=== PATIENT | female | born 1980 | race Caucasian/White ===

== ENCOUNTER 2017-07-11 01:57 | Observation (INO) ==
[2017-07-11 02:29] LABS: Microscopic, Urine URINE MICROSCOPIC (MICROSCOPIC)
[2017-07-11 02:31] LABS: Appearance,Urine CLEAR (Clear); Bilirubin,Urine Negative (Negative); Blood, Urine Negative (Negative); Color,Urine YELLOW (Yellow); Glucose,Urine (UA) Negative (Negative); Ketones,Urine Negative (Negative); Leukocyte Esterase,Urine Negative (Negative); Protein,Urine Negative (Negative); Specific Gravity, Urine 1.025 (1.005-1.030); Urobilinogen,Urine 0.2 EU/dl (0.2)
[2017-07-11 02:32] LABS: Basophils % 0.4 % (0.1-2.0); Eosinophils # 0.3 K/mm3 (0.0-0.4); Eosinophils % 4.5 % (0.1-12.0); Hematocrit 43.2 % (37.0-47.0); Hemoglobin 14.8 g/dL (12.2-16.2); Lymphocytes # 1.7 K/mm3 (0.7-4.5); Lymphocytes % 22.4 K/mm3 (10-50); Mean Corpuscular HGB Conc 34.2 g/dL (31.8-35.4); Mean Corpuscular Hemoglobin 31.3 pg (27.0-31.2); Mean Corpuscular Volume 91.5 fl (81-99); Mean Platelet Volume 7.4 fl (7.4-10.4); Monocytes # 0.4 K/mm3 (0.1-1.0); Monocytes % 4.9 % (1.7-9.3); Neutrophils # 5.1 K/mm3 (1.8-7.8); Neutrophils % 67.8 % (37.0-80.0); Platelet Count 240 K/mm3 (142-424); Red Blood Count 4.72 M/mm3 (4.20-5.40); White Blood Count 7.6 K/mm3 (4.8-10.8)
[2017-07-11 02:33] LABS: Amorphous Sediment,Urine Trace /lpf
[2017-07-11 03:00] LABS: Alanine Aminotransferase 45 U/L (12-78); Albumin Level 3.7 gm/dL (3.4-5.0); Albumin/Globulin Ratio 1.1 (1.1-1.8); Alkaline Phosphatase 90 U/L (46-116); Amylase 49 U/L (25-125); Aspartate Amino Transferase 21 U/L (15-37); Bilirubin,Total 0.4 mg/dL (0.2-1.0); Blood Urea Nitrogen 10 mg/dL (7-18); C-Reactive Protein 1.2 mg/L (0.0-0.9); Calcium 9.4 mg/dL (8.5-10.1); Carbon Dioxide 29 mmol/L (21.0-32.0); Chloride 102 mmol/L (98-107); Creatine Kinase 37 U/L (26-192); Globulin 3.5 gm/dl (1.3-3.2); Glucose 105 mg/dL (74-106); Lipase 150 u/L (73-393); Sodium 140 mmol/L (136-145); Total Protein,Serum 7.2 gm/dL (6.4-8.2)
[2017-07-11 03:15] LABS: Erythrocyte Sedimentation Rate 21 mm/hr (0-20)
--- NOTE | 2017-07-11 04:39 | Emergency Department Note ---
ED Disposition Clinical Impression: Cholecystitis Disposition: Admitted as Observation Condition on Discharge: Good - Critical Care Critical Care Time: No Attestation: On 07/11/17, the high probability of a clinically significant, sudden or life threatening deterioration of the following system(s) required my full and direct attention, intervention and personal management. The time I documented below is in addition to time spent performing reported procedures but includes the following listed in this critical care notation. Medical Decision Making - Medical Records Medical records reviewed: Yes: I reviewed the patient's medical records. - Kamran Inquiry Pt receiving controlled substance: No Vital Signs: 07/11/17 01:58 07/11/17 01:59 07/11/17 04:18 Temperature 98.2 F 98.2 F Temperature Source Oral Oral Pulse Rate [Right Radial] 89 89 63 Respiratory Rate 16 16 17 Blood Pressure [Right Arm] 133/84 133/84 144/98 Blood Pressure Mean [Right Arm] 100 100 113 Blood Pressure Source [Right Arm] Automatic Cuff Automatic Cuff Automatic Cuff Blood Pressure Position [Right Arm] Sitting Sitting Sitting 02 Sat by Pulse Oximetry 98 98 100 Oxygen Delivery Method Room Air Room Air Room Air - Lab Data Lab results reviewed: Yes: I reviewed the patient's lab results. Lab Results 07/11/17 02:12: Urine Color Yellow, Urine Appearance Clear, Urine pH 6.0, Ur Specific [place] 1.025, Urine Protein Negative, Urine Glucose (UA) Negative, Urine Ketones Negative, Urine Blood Negative, Urine Nitrate Negative, Urine Bilirubin Negative, Urine Urobilinogen 0.2, Ur Leukocyte Esterase Negative, Amorphous Sediment Trace 07/11/17 02:12: WBC 7.6, RBC 4.72, Hgb 14.8, Hct 43.2, MCV 91.5, MCH 31.3 H, MCHC 34.2, RDW 12.0, Plt Count 240, MPV 7.4, Neut % (Auto) 67.8, Lymph % (Auto) 22.4, [place] % (Auto) 4.9, Eos % (Auto) 4.5, Baso % (Auto) 0.4, Neut # (Auto) 5.1 , Lymph # (Auto) 1.7, [place] # (Auto) 0.4, Eos # (Auto) 0.3, Baso # (Auto) 0.0, ESR 21 H 07/11/17 02:12: Urine HCG, Qual Negative 07/11/17 02:12: Sodium 140, Potassium 4.0, Chloride 102, Carbon Dioxide 29, Anion Gap 13.0, BUN 10, Creatinine 0.77, Estimated Creat Clear 141, Estimated GFR 86, Est GFR ( Amer) 104, Glucose 105, Calcium 9.4, Total Bilirubin 0.4, AST 21, ALT 45, Alkaline Phosphatase 90, Total Creatine Kinase 37, CK-MB ( CK-2) < 0.5, CK-MB (CK-2) Rel Index 1.4, Troponin I < 0.02, C-Reactive Protein 1.2 H, Total Protein 7.2, Albumin 3.7, Globulin 3.5 H, Albumin/Globulin Ratio 1.1, Amylase 49, Lipase 150 Result diagrams: 07/11/17 02:12 07/11/17 02:12 Orders (Tests/Meds): ED MEDICATIONS Generic Name Dose Route Start Last Admin Trade Name Domenicq PRN Reason Stop Dose Admin Butorphanol Tartrate 1 mg 07/11/17 04:54 Stadol 1mg/1ml Vial IV 07/11/17 04:55 ONCE ONE Promethazine HCl 12.5 mg 07/11/17 04:54 Phenergan 25mg/Ml 1ml Vial IV 07/11/17 04:55 ONCE ONE Sodium Chloride 25 ml 07/11/17 04:54 Sod Chlor 0.9% 25ml Bag IV 07/11/17 04:55 ONCE ONE Discontinued Medications Generic Name Dose Route Start Last Admin Trade Name Domenicq PRN Reason Stop Dose Admin Iopamidol 75 ml 07/11/17 03:28 07/11/17 03:29 [id number]; 75ml Vial IV 07/11/17 03:29 75 ml ONCE ONE Administration Ketorolac Tromethamine 30 mg 07/11/17 02:23 07/11/17 02:29 Toradol 30mg/Ml Vial IV 07/11/17 02:24 30 mg ONCE ONE Administration Morphine Sulfate 4 mg 07/11/17 03:49 07/11/17 03:51 Morphine 2mg/2ml Syringe IV 07/11/17 03:50 4 mg ONCE ONE Administration Ondansetron HCl 4 mg 07/11/17 02:23 07/11/17 02:29 Zofran 4mg/2ml Vial IV 07/11/17 02:24 4 mg ONCE ONE Administration Ondansetron HCl 4 mg 07/11/17 03:49 07/11/17 03:51 Zofran 4mg/2ml Vial IV 07/11/17 03:50 4 mg ONCE ONE Administration Sodium Chloride 10 ml 07/11/17 03:28 07/11/17 03:29 Rad-Saline Flush 10ml Syringe IV 07/11/17 03:29 10 ml ONCE ONE Administration ORDERS Category Date Time Status CT abdomen pelvis w con Stat Cat Scan 07/11/17 02:12 Taken XR thoracic spine 3V Stat Exams 07/11/17 02:18 Taken - Radiology Data #1 Image(s): T-Spine Image Reviewed: Yes I reviewed the patient's radiology image Preliminary Findings: No Fracture Seen - CT Data CT Scan: Abdomen, Pelvis Time Received: 04:[address] Reviewed: Yes: I have viewed the radiologist's interpretation Preliminary Findings: Abnormal - ECG Data Tracing #1 I reviewed this ECG and interpreted as documented below: Normal Sinus Rhythm: Yes Ischemic changes: non-specific ST-T wave changes - Physician Consults Physician Consulted: andres Reason -: Admission Nausea/Vomiting/Diarrhea HPI - General Chief complaint: Back Pain/Injury Stated complaint: back pain Time Seen by Provider: 07/11/17 02:05 Mode of Arrival: Ambulatory Source of Information: Patient, Spouse Limitations: No Limitations Description of Symptoms (Recalled from ER Triage Doc. by RN): Pt. reports mid thoracic back pain that started yesterday and continues to get worse. Pain woke pt. from sleep and is now radiating to her chest. - History of Present Illness HPI Narrative: post thoracic pain with rad to epigastric area with nausea - worse tonight - no fever complaint: nausea, vomiting, abdominal pain Onset (ago): hour(s) Associated Abdominal Pain: Yes Location of pain: epigastric Radiation: other (spine-t) Severity: severe Quality: sharp Consistency: intermittent Associated symptoms: nausea/vomiting - Related Data Home Medications Medication Instructions Recorded Confirmed No Known Home Medications 07/11/17 07/11/17 Allergies Allergy/AdvReac Type Severity Reaction Status Date / Time No Known Allergies Allergy Verified 07/11/17 02:11 [facility] History I have reviewed the patient's past medical history: Yes - Social History Alcohol Intake: never - Psychiatric History Expresses thoughts of harming self/others: None Suicide Plan Description: No Plan ROS Obtained: Yes All systems reviewed & no additional complaints - Constitutional Constitutional: Denies fever(s) - Eyes Eyes: Denies change in vision - ENT Ears, Nose, Mouth, and Throat: Denies sore throat - Cardiovascular Cardiovascular: Denies chest pain - Respiratory Respiratory: No cough - Gastrointestinal Gastrointestingal: Reports: as per HPI, abdominal pain, nausea, vomiting. Denies: diarrhea, bright red blood in stools, black, tarry stools - Genitourinary Female Genitourinary: Denies hematuria - Musculoskeletal Musculoskeletal: Denies joint pain, Denies joint swelling - Integumentary/Breasts Skin/Breast: Denies rash - Neurologic Neurologic: Denies seizure-like activity Physical Exam - General General appearance: alert, in no apparent distress - Head Head exam: normocephalic - Eye Eye exam: Present: PERRL, EOMI. Absent: scleral icterus - ENT ENT exam: Present: mucous membranes moist - Neck Neck exam: Present: trachea midline - Respiratory Respiratory exam: Absent: respiratory distress - Cardiovascular Cardiovascular exam: Present: regular rate - Abdominal Exam Abdominal exam: Present: soft, tenderness Abdominal tenderness: Present: epigastrium - Extremities Exam Extremities exam: Present: full ROM - Back Exam Back exam: Present: vertebral tenderness. Absent: CVA tenderness (R), CVA tenderness (L) - Neurological Exam Neurological exam: Present: alert, oriented X3, CN II-XII intact - Psychiatric Psychiatric exam: Present: normal affect - Skin Skin exam: Absent: rash
[2017-07-11 06:53] LABS: Basophils % 0.3 % (0.1-2.0); Eosinophils # 0.3 K/mm3 (0.0-0.4); Eosinophils % 4.3 % (0.1-12.0); Hematocrit 44.6 % (37.0-47.0); Lymphocytes # 1.3 K/mm3 (0.7-4.5); Lymphocytes % 16.5 K/mm3 (10-50); Mean Corpuscular HGB Conc 33.6 g/dL (31.8-35.4); Mean Corpuscular Hemoglobin 31.4 pg (27.0-31.2); Mean Corpuscular Volume 93.7 fl (81-99); Mean Platelet Volume 7.2 fl (7.4-10.4); Monocytes # 0.3 K/mm3 (0.1-1.0); Neutrophils # 5.9 K/mm3 (1.8-7.8); Platelet Count 197 K/mm3 (142-424); Red Blood Count 4.76 M/mm3 (4.20-5.40); White Blood Count 7.9 K/mm3 (4.8-10.8)
[2017-07-11 07:14] LABS: Chol/HDL Ratio 2.7 (1-3.5)
--- NOTE | 2017-07-11 07:49 | Pharmacy Consult Notes ---
[facility] Pharmacy VTE Monitoring - Patient Demographics Admission date: 07/11/17 Report Date: 07/11/17 Time: 07:48 Allergies/Adverse Reactions: Patient Allergies No Known Allergies Allergy (Verified 07/11/17 02:11) Height: 1.68 m Weight: 89.7 kg Patient Problems: Current Active Problems Cholecystitis (Acute) - VTE Risk Labs: VTE Related Lab Results Hgb 15.0 g/dL (12.2-16.2) 07/11/17 06:25 Hct 44.6 % (37.0-47.0) 07/11/17 06:25 Plt Count 197 K/mm3 (142-424) 07/11/17 06:25 BUN 10 mg/dL (7-18) 07/11/17 02:12 Creatinine 0.77 mg/dL (0.55-1.02) 07/11/17 02:12 Estimated Creat Clear 141 mL/min (0-300) 07/11/17 02:12 Was VTE Risk Assessment Performed: Yes VTE Score: 2 VTE Risk Level: Very Low Risk Clinical Trial Participant: No - Prophylaxis VTE Prophylaxis Ordered?: Yes Types of VTE Prophylaxis: TEDS Knee High
--- NOTE | 2017-07-11 09:58 | History & Physical Report ---
HPI HPI: This is a 36-year-old female who presented to emergency department overnight with increasing pain in the epigastric region and mid posterior back. She also has noticed some pain in the right upper quadrant in the last "day or so". She describes the pain as "pressure". No jaundice. No fevers. Symptoms were not definitively associated with food intake. Evaluation emergency department revealed no evidence of cardiac issues. A CT scan showed changes consistent with biliary disease as her gallbladder was slightly distended. Mild prominence of biliary radicles noted. She did have sludge versus stones in the neck of the gallbladder. [facility] History Medical History: Denies:: Arrhythmia, Cancer Other Medical History: Denies: Arthritis - *Social History Educational Level: Completed College Smoking Status: Never smoker Alcohol Intake: never Occupational Status: employed Housing: house Household Members: spouse, children - Psychiatric History Expresses thoughts of harming self/others: None Suicide Plan Description: No Plan *Family Hx:: Asthma, Cancer, Coronary Artery Disease, Hyperlipidemia, Hypertension Review of Systems - Constitutional Denies anorexia, Denies chills - Eyes Denies change in vision - ENT Denies bleeding gums, Denies change in voice - *Cardiovascular Denies chest pain with activity, Denies generalized swelling, Denies irregular heart rhythm - *Respiratory Denies cough - *Gastrointestinal Reports abdominal pain, Denies bloating, Denies change in bowel habits, Denies vomiting - *Genitourinary Denies abnormal periods - *Musculoskeletal Denies abnormal walking - *Neurologic Denies seizure-like activity - Hematologic/Lymphatic Denies easy bleeding Meds Home Medications Medication Instructions Recorded Confirmed Type No Known Home Medications 07/11/17 07/11/17 History Allergies Allergy/AdvReac Type Severity Reaction Status Date / Time No Known Allergies Allergy Verified 07/11/17 02:11 Exam Vital signs and Labs for Last 24 Hours: Temp Pulse Resp BP Pulse Ox 98.0 F 60 18 100/65 100 07/11/17 07:32 07/11/17 07:32 07/11/17 07:32 07/11/17 07:32 07/11/17 07:32 Laboratory Results - last 24 hr 07/11/17 02:12: Urine Color Yellow, Urine Appearance Clear, Urine pH 6.0, Ur Specific [place] 1.025, Urine Protein Negative, Urine Glucose (UA) Negative, Urine Ketones Negative, Urine Blood Negative, Urine Nitrate Negative, Urine Bilirubin Negative, Urine Urobilinogen 0.2, Ur Leukocyte Esterase Negative, Amorphous Sediment Trace 07/11/17 02:12: WBC 7.6, RBC 4.72, Hgb 14.8, Hct 43.2, MCV 91.5, MCH 31.3 H, MCHC 34.2, RDW 12.0, Plt Count 240, MPV 7.4, Neut % (Auto) 67.8, Lymph % (Auto) 22.4, [place] % (Auto) 4.9, Eos % (Auto) 4.5, Baso % (Auto) 0.4, Neut # (Auto) 5.1 , Lymph # (Auto) 1.7, [place] # (Auto) 0.4, Eos # (Auto) 0.3, Baso # (Auto) 0.0, ESR 21 H 07/11/17 02:12: Urine HCG, Qual Negative 07/11/17 02:12: Sodium 140, Potassium 4.0, Chloride 102, Carbon Dioxide 29, Anion Gap 13.0, BUN 10, Creatinine 0.77, Estimated Creat Clear 141, Estimated GFR 86, Est GFR ( Amer) 104, Glucose 105, Calcium 9.4, Total Bilirubin 0.4, AST 21, ALT 45, Alkaline Phosphatase 90, Total Creatine Kinase 37, CK-MB ( CK-2) < 0.5, CK-MB (CK-2) Rel Index 1.4, Troponin I < 0.02, C-Reactive Protein 1.2 H, Total Protein 7.2, Albumin 3.7, Globulin 3.5 H, Albumin/Globulin Ratio 1.1, Amylase 49, Lipase 150 07/11/17 06:25: WBC 7.9, RBC 4.76, Hgb 15.0, Hct 44.6, MCV 93.7, MCH 31.4 H, MCHC 33.6, RDW 12.0, Plt Count 197, MPV 7.2 L, Neut % (Auto) 75.0, Lymph % (Auto ) 16.5, [place] % (Auto) 4.0, Eos % (Auto) 4.3, Baso % (Auto) 0.3, Neut # (Auto) 5.9, Lymph # (Auto) 1.3, [place] # (Auto) 0.3, Eos # (Auto) 0.3, Baso # (Auto) 0.0 07/11/17 06:25: Triglycerides 49, Cholesterol 142, LDL Cholesterol 80, VLDL Cholesterol 10, HDL Cholesterol 52, Cholesterol/HDL Ratio 2.7 I & O for Last 24 hours: Intake & Output 07/08/17 07/09/17 07/10/17 07/11/17 11:59 11:59 11:59 11:59 Intake Total 0 / 0 Balance 0 / 0 Weight 197 lb 12.074 oz - Constitutional no acute distress - *Routine Respiratory Exam Absent: respiratory distress - *Routine Cardiovascular Exam Present: RRR - *Routine Abdominal Exam Present: soft, tenderness (Epigastric in RUQ) - *Routine Extremities Exam Present: full ROM. Absent: cyanosis, clubbing - *Routine Neurological Exam Present: alert, oriented X3 - Routine Psychiatric Exam Present: normal affect Results - Results Lab Results Last 24 Hours:: Laboratory Results - last 24 hr 07/11/17 02:12: Urine Color Yellow, Urine Appearance Clear, Urine pH 6.0, Ur Specific [place] 1.025, Urine Protein Negative, Urine Glucose (UA) Negative, Urine Ketones Negative, Urine Blood Negative, Urine Nitrate Negative, Urine Bilirubin Negative, Urine Urobilinogen 0.2, Ur Leukocyte Esterase Negative, Amorphous Sediment Trace 07/11/17 02:12: WBC 7.6, RBC 4.72, Hgb 14.8, Hct 43.2, MCV 91.5, MCH 31.3 H, MCHC 34.2, RDW 12.0, Plt Count 240, MPV 7.4, Neut % (Auto) 67.8, Lymph % (Auto) 22.4, [place] % (Auto) 4.9, Eos % (Auto) 4.5, Baso % (Auto) 0.4, Neut # (Auto) 5.1 , Lymph # (Auto) 1.7, [place] # (Auto) 0.4, Eos # (Auto) 0.3, Baso # (Auto) 0.0, ESR 21 H 07/11/17 02:12: Urine HCG, Qual Negative 07/11/17 02:12: Sodium 140, Potassium 4.0, Chloride 102, Carbon Dioxide 29, Anion Gap 13.0, BUN 10, Creatinine 0.77, Estimated Creat Clear 141, Estimated GFR 86, Est GFR ( Amer) 104, Glucose 105, Calcium 9.4, Total Bilirubin 0.4, AST 21, ALT 45, Alkaline Phosphatase 90, Total Creatine Kinase 37, CK-MB ( CK-2) < 0.5, CK-MB (CK-2) Rel Index 1.4, Troponin I < 0.02, C-Reactive Protein 1.2 H, Total Protein 7.2, Albumin 3.7, Globulin 3.5 H, Albumin/Globulin Ratio 1.1, Amylase 49, Lipase 150 07/11/17 06:25: WBC 7.9, RBC 4.76, Hgb 15.0, Hct 44.6, MCV 93.7, MCH 31.4 H, MCHC 33.6, RDW 12.0, Plt Count 197, MPV 7.2 L, Neut % (Auto) 75.0, Lymph % (Auto ) 16.5, [place] % (Auto) 4.0, Eos % (Auto) 4.3, Baso % (Auto) 0.3, Neut # (Auto) 5.9, Lymph # (Auto) 1.3, [place] # (Auto) 0.3, Eos # (Auto) 0.3, Baso # (Auto) 0.0 07/11/17 06:25: Triglycerides 49, Cholesterol 142, LDL Cholesterol 80, VLDL Cholesterol 10, HDL Cholesterol 52, Cholesterol/HDL Ratio 2.7 CT scan - abdomen: report reviewed Assessment and Plan (1) Liver cyst Problem details: small (likely cyst) in left lobe Current visit: Yes Status : Acute Category: Medical Code(s): K76.89 - Other specified diseases of liver US in 2-4 months (2) Splenomegaly Problem details: mild (likely incidental) finding on CT Current visit: Yes Status: Acute Category: Medical Code(s): R16.1 - Splenomegaly, not elsewhere classified (3) Cholecystitis Current visit: Yes Status: Acute Category: Medical Code(s): K81.9 - Cholecystitis, unspecified Pain control (maintain observation status today) Laparoscopic cholecystectomy-I have discussed the risks and benefits and she agrees to proceed. She is scheduled for surgery tomorrow morning.
--- NOTE | 2017-07-12 07:00 | Progress Note ---
[facility] Anesthesia Checklist - Patient Identification Patient Identification: Arm Band, Verbal (Name & ) - Structural Data Admitted From: Home Planned Operative Procedure/s: lap choly Consent for Planned Operative Procedure(s) Verified: Yes Verified Documents: Surgical Consent, History and Physical - NPO Status Verified Time NPO: 00:00 - Chart Verification Results Verified: CBC - Additional verifications Patient : No Anesthesia Reactions: No Hx Blood Transfusions: No Blood Transfusion Reaction: No Cephalosporin Allergy: No Previous Colonoscopy: No - Cardiovascular Assessment Heart Sounds: S1 & S2 Pulse Strength: Baseline Pulse Rhythm: Regular - Airway Assessment C-Spine Mobility Assessed: Yes TMJ Mobility Assessed: Yes Dentition: Good Dentition - Neurological Assessment Level of Consciousness: Awake, Alert, Appropriate Hx Seizures: No Numbness or tingling in extremities: No - Anesthesia Plan Anesthesia Risk discussed: Yes Anesthesia Plan: Verified ASA Class: I Anesthesia Type: General [facility] Anesthesia HX I have reviewed the patient's past medical history: Yes Medical History: Denies:: Arrhythmia, Cancer Other Medical History: Denies: Arthritis Other Surgeries: Yes: No Previous Surgery Amputation: No Fractures: No *Family Hx:: Asthma, Cancer, Coronary Artery Disease, Hyperlipidemia, Hypertension
--- NOTE | 2017-07-12 07:17 | Progress Note ---
Subjective Patient reports: other (Some increased pain (worse after meals) yesterday) Exam Vital signs and Labs for Last 24 Hours: Temp Pulse Resp BP Pulse Ox 98.6 F 86 16 116/68 95 07/12/17 04:00 07/12/17 04:00 07/12/17 04:00 07/12/17 04:00 07/12/17 04:00 Laboratory Results - last 24 hr 07/11/17 06:25: Triglycerides 49, Cholesterol 142, LDL Cholesterol 80, VLDL Cholesterol 10, HDL Cholesterol 52, Cholesterol/HDL Ratio 2.7 I & O for Last 24 hours: Intake & Output 07/09/17 07/10/17 07/11/17 07/12/17 11:59 11:59 11:59 11:59 Intake Total 0 / 0 2240 / 2240 Balance 0 / 0 2240 / 2240 Weight 197 lb 12.074 oz - Constitutional no acute distress - *Routine Respiratory Exam Present: respiratory distress - *Routine Abdominal Exam Present: soft Progress Note: A&P (1) Liver cyst Problem details: small (likely cyst) in left lobe Status: Acute Current Visit: Yes (2) Splenomegaly Problem details: mild (likely incidental) finding on CT Status: Acute Current Visit: Yes (3) Cholecystitis Status: Acute Assessment and plan: Laparoscopic cholecystectomy this morning Current Visit: Yes
--- NOTE | 2017-07-12 08:54 | Operative Note ---
Date of procedure: 07/12/17 Pre-op Diagnosis:: Biliary colic Cholecystitis Post-op Diagnosis:: Acute calculus cholecystitis Gallbladder hydrops Procedure performed:: Laparoscopic cholecystectomy Surgeon:: Baron Warren MD Tool Grinder Set Up Operator Gear(s):: Silvia Church PIANO CASE MAKER:: Chucky Mathis Anesthesia: GETPurnima Estimated blood loss (mL): 15 Operative findings:: Hydropic gallbladder with significant distention and thickening of wall Probable stones within gallbladder lumen Lex-Ramirez drains (2) placed in gallbladder fossa Operative note:: After informed consent was obtained, the patient was taken to the operating room and placed in the supine position. General anesthesia was induced and the abdomen was prepped and draped in a sterile fashion. After infiltration with local anesthetic an infraumbilical incision was made. A Veress needle was placed in position. The abdomen was insufflated. A 5 mm optical trocar was placed in position. Under direct visualization, a 12 mm trocar was placed in the subxiphoid position and 2 additional 5 mm trocars were placed in the right upper quadrant. The gallbladder was elevated up and over the liver margin. The gallbladder is very distended with thickening of the wall. Changes consistent with obvious hydrops were noted. A small opening was made in the dome of the gallbladder. Clear fluid was evacuated. The tissue around the cystic duct was carefully dissected. Four clips were placed proximally and the duct was transected with harmonic estefania. Two clips were placed on the cystic artery and it was then transected at the margin of the gallbladder utilizing harmonic estefania. Harmonic estefania were then utilized to dissect the gallbladder away from the liver margin. The gallbladder was placed in a retrieval bag and removed through the subxiphoid trocar site. The right upper quadrant was thoroughly irrigated. Secondary to the significant inflammatory response, the decision was made to Place Lex-Ramirez drains. A 10 [place] flat Lex- Ramirez drain was placed in the gallbladder fossa and exited through the lateral right upper quadrant trocar site. A second 10 [place] flat Lex-Ramirez drain was placed just outside the gallbladder fossa and exited through the additional right upper quadrant trocar site. The drains were secured with 4-0 nylon. Evaluation of the right upper quadrant revealed no active bleeding or bile leak. Fascia at the subxiphoid trocar site was reapproximated utilizing 0 Ethibond. The remaining trocars were removed. All wounds were irrigated and skin was closed with 4-0 Monocryl in a subcuticular fashion. Steri-Strips were applied. The patient's anesthetic agents were reversed and extubation was completed prior to transfer to recovery in stable condition. Condition: stable Disposition: PACU Specimens:: Gallbladder and contents Complications:: No immediate
--- NOTE | 2017-07-12 09:09 | Progress Note ---
[facility] Anesthesia Record Part I Intake, IV Amount: 1,000 Estimated blood loss (mL): 10 Urine output (mL): 0 Blood Products used (#): none Blood Pressure: 141/91 SaO2: 96 Pulse Rate: 68 Respiratory Rate: 18 Temperature: 97.2 F Patient is:: Drowsy, Stable Stable to PACU at:: 09:02
--- NOTE | 2017-07-12 09:09 | Progress Note ---
[facility] Anesthesia Record Part II Discharge Time: 09:32 Destination: Medical Surgical Department PACU nurse assessment reviewed?: Yes Patient Condition:: Good Anesthesia Complications:: None
--- NOTE | 2017-07-12 13:12 | Discharge Summary ---
General - General Admission date:: 07/11/17 Discharge date: 07/12/17 HPI HPI: This is a 36-year-old female who presented to emergency department overnight with increasing pain in the epigastric region and mid posterior back. She also has noticed some pain in the right upper quadrant in the last "day or so". She describes the pain as "pressure". No jaundice. No fevers. Symptoms were not definitively associated with food intake. Evaluation emergency department revealed no evidence of cardiac issues. A CT scan showed changes consistent with biliary disease as her gallbladder was slightly distended. Mild prominence of biliary radicles noted. She did have sludge versus stones in the neck of the gallbladder. Hospital Course Hospital Course: The patient underwent laparoscopic cholecystectomy on the morning of 07/12/17. She progressed well post-operatively and was deemed appropriate for discharge home on the afternoon of POD 0. Objective Vital signs: Temp Pulse Resp BP Pulse Ox 97.9 F 60 18 121/80 98 07/12/17 12:04 07/12/17 12:04 07/12/17 12:04 07/12/17 12:04 07/12/17 12:04 no acute distress - *Routine Respiratory Exam Absent: respiratory distress - *Routine Cardiovascular Exam Present: RRR - *Routine Abdominal Exam Present: soft, tenderness Comments: epigastric and RUQ - *Routine Neurological Exam Present: alert, oriented X3 - Routine Psychiatric Exam Present: normal affect DS: Diagnosis - Discharge Diagnosis (1) Liver cyst Status: Acute Problem details: small (likely cyst) in left lobe (2) Splenomegaly Status: Acute Problem details: mild (likely incidental) finding on CT (3) Cholecystitis Status: Acute (4) Acute calculous cholecystitis Status: Acute (5) Gallbladder hydrops Status: Acute Discharge Plan - Patient Discharge Instructions ACTIVITY: No heavy lifting DIET: advance to your usual diet Patient Instructions: [place] Diet - Follow up Plan Follow up with: Baron Warren MD [Staff Physician] - 07/14/17 Disposition: Home, Self-Residential Medications: Home Medications Medication Instructions Recorded Confirmed Type No Known Home Medications 07/11/17 07/11/17 History Prescriptions/Medication Reconciliation: No Action No Known Home Medications
[2017-07-12 13:51] VITALS: BP 118/70
== END 2017-07-12 13:53 | disposition home or self-care (01) ==
LOC: ER 01:57 → 2ND 04:56 → INTOOBSV 05:30 → 2ND 05:33
PROVIDERS: ADMIT Surgery; ATTEND Surgery

== ENCOUNTER 2018-08-18 08:00 | Outpatient (RCR) | payer OTHER, SELFPAY | END 2018-08-18 08:05 | disposition home or self-care (01) | LOC: PT 08:00 | PROVIDERS: Visit Provider Nurse Practitioner Family | DX: M54.5 Low back pain (principal) | CPT/HCPCS: 97010; 97014; 97035; 97110; 97140; 97163; G0283 ==

== ENCOUNTER → 2019-06-15 14:39 | Outpatient (CLI) | payer OTHER, SELFPAY | PROVIDERS: PCP Family Medicine; Visit Provider Specialist | DX: G47.33 Obstructive sleep apnea (adult) (pediatric) (principal); G47.30 Sleep apnea, unspecified; R06.83 Snoring | CPT/HCPCS: 95806 ==

== ENCOUNTER → 2019-11-10 13:52 | Outpatient (CLI) | payer OTHER, MEDICAID, SELFPAY ==
[2019-11-10 15:39] LABS: 25-OH Vitamin D, Total 35.2 ng/mL (30-100)
[2019-11-10 16:14] LABS: Vitamin B12 224 pg/mL (239-931)
== END ==
PROVIDERS: Visit Provider Specialist
DX: Z00.00 Encounter for general adult medical examination without abnormal findings (principal); Z13.9 Encounter for screening, unspecified; R53.83 Other fatigue
CPT/HCPCS: 82306; 82607

== ENCOUNTER → 2020-01-16 12:44 | Outpatient (CLI) | payer OTHER, MEDICAID, SELFPAY ==
--- NOTE | 2020-01-16 12:51 | XR_ITS ---
PROCEDURE: XR SHOULDER RT MIN 2V CLINICAL INDICATION: right shoulder pain COMPARISON: No exams were available for comparison FINDINGS: No fracture or dislocation. No lytic or blastic change. There is normal mineralization. The joint spaces are well-preserved. No significant degenerative/arthritic changes. No erosive changes evident. Other findings:No significant subacromial stenosis. IMPRESSION: Negative right shoulder Dictated by: Wil Harris MD 01/16/2020 13:32 Wil Harris MD in [place] 01/16/2020 13:32
== END ==
PROVIDERS: PCP Family Medicine; Visit Provider Orthopaedic Surgery
DX: M25.511 Pain in right shoulder (principal)
CPT/HCPCS: 73030

== ENCOUNTER → 2020-01-18 14:34 | Outpatient (CLI) | payer OTHER, MEDICAID, SELFPAY ==
--- NOTE | 2020-01-18 14:35 | MR_ITS ---
PROCEDURE: MR SHOULDER RT WO CON CLINICAL INDICATION: evaluate for rotator cuff tear Shoulder pain, throwing injury ,weakness COMPARISON: CR XR SHOULDER RT MIN 2V from 01/16/2020 TECHNIQUE: Routine multiplanar multi echo sequences are performed without gadolinium enhancement. FINDINGS: There is mild thickening of the supraspinatus tendon slight increase in T2 signal consistent with tendinopathy/tendinosis. A definite rotator cuff tear however is not. The infraspinatus, subscapularis, and teres minor tendons appear intact. There is a small area of increased T2 signal along the middle glenohumeral ligament as seen on axial image number 13. This is of questionable clinical significance but does raise the question a sprain or partial tear of the MCL. No obvious labral tear. The bicipital tendon is in place. There is a small amount of fluid in the subacromial region and along the anterior surface the supraspinatus tendon. IMPRESSION: 1. No evidence of rotator cuff tear. 2. Suspect tendinopathy/tendinosis of the supraspinatus tendon. 3. Small area of increased T2 signal involving the middle glenohumeral ligament which could be seen with sprain or partial tear of the MCL. Dictated by: Wil Harris MD 01/18/2020 15:55 Wil Harris MD in [place] 01/18/2020 15:55
== END ==
PROVIDERS: PCP Family Medicine; Visit Provider Orthopaedic Surgery
DX: M25.511 Pain in right shoulder (principal)
CPT/HCPCS: 73221

== ENCOUNTER → 2020-01-24 12:10 | Outpatient (CLI) | payer OTHER, MEDICAID, SELFPAY ==
[2020-01-24 12:45] LABS: Adenovirus,PCR Not Detected (NotDetected); Bordetella Pertussis Not Detected (NotDetected); Chlamydophila Pneumoniae, PCR Not Detected (NotDetected); Coronavirus 229E Not Detected (NotDetected); Coronavirus NL63 Not Detected (NotDetected); Coronavirus OC43 Not Detected (NotDetected); Coronovirus HKU1,PCR Not Detected (NotDetected); Human Metapneumovirus Not Detected (NotDetected); Influenza A, PCR Not Detected (NotDetected); Influenza AH1, 2009 Not Detected (NotDetected); Influenza AH1, PCR Not Detected (NotDetected); Influenza AH3,PCR Not Detected (NotDetected); Influenza B, PCR Not Detected (NotDetected); Mycoplasma Pneumoniae, PCR Not Detected (NotDetected); Parainfluenza 1, PCR Not Detected (NotDetected); Parainfluenza 2, PCR Not Detected (NotDetected); Parainfluenza 3, PCR Not Detected (NotDetected); Parainfluenza 4, PCR Not Detected (NotDetected); Respiratory Syncytial Virus Not Detected (NotDetected); Rhinovirus/Enterovirus Not Detected (NotDetected)
[2020-01-24 20:11] LABS: Coronavirus 19, PCR Detected (NotDetected)
== END ==
PROVIDERS: PCP Family Medicine; Visit Provider Internal Medicine Adolescent Medicine
DX: Z20.828 Contact with and (suspected) exposure to other viral communicable diseases (principal); U07.1 COVID-19
CPT/HCPCS: 87581; 87633; 87798

== ENCOUNTER → 2020-04-19 12:59 | Outpatient (CLI) | payer OTHER, SELFPAY ==
--- NOTE | 2020-04-19 12:59 | MM_ITS ---
PROCEDURE: MM DIG SCREENING MAMM BI W/CAD Digital Breast Tomosynthesis Included CLINICAL INDICATION: baseline xmg There is a history of breast cancer in the patient's paternal aunt. COMPARISON: This is a baseline screening exam, patient without complaints TECHNIQUE: Standard CC and MLO images and 3D Tomosynthesis was obtained. R2 CAD reviewed. FINDINGS: Moderate diffuse fibroglandular densities are seen throughout both breasts. The findings are bilateral and symmetrical. However there is a slightly suspicious asymmetric nodular density inner quadrant left breast best seen on the iron images and containing a few very faint microcalcifications. This is only definitely seen on the CC projection but recommend the patient return for spot compression views and ultrasound for additional evaluation. IMPRESSION: Moderate breast density with somewhat suspicious asymmetric nodular density left breast BI-RAD Category: 0 Need Additional Imaging Evaluation FOLLOW-UP: IMM Immediate Follow-up Recommended (A letter has been sent to the patient regarding results of the study.) Dictated by: Dr. Andrew Holder MD 04/21/2020 08:44 Dr. Andrew Holder MD in [place] 04/21/2020 08:44
== END ==
PROVIDERS: PCP Family Medicine; Visit Provider Nurse Practitioner Obstetrics & Gynecology
DX: Z12.31 Encounter for screening mammogram for malignant neoplasm of breast (principal); Z80.3 Family history of malignant neoplasm of breast
CPT/HCPCS: 77063; 77067

== ENCOUNTER → 2020-04-24 14:35 | Outpatient (CLI) | payer OTHER, SELFPAY ==
--- NOTE | 2020-04-24 14:35 | MM_ITS ---
PROCEDURE: MM DIG MAMM DX UNILAT LT CAD Digital Breast Tomosynthesis Included CLINICAL INDICATION: abnormal findings on diagnostic imaging of breast Follow-up abnormal mammogram COMPARISON: MG MM DIG SCREENING MAMM BI W/CAD from 04/19/2020 US US BREAST LT COMPLETE from 04/24/2020 TECHNIQUE: Problem solving views performed of the left breast along with left breast ultrasound FINDINGS: On the spot CC view of the left breast there is an 8 mm nodular opacity in the medial aspect of the left breast with some indeterminate calcifications. This corresponds to the abnormality noted on the screening exam. This is not well demonstrated on the orthogonal view. There are however some faint calcifications within this nodule. This is somewhat suspicious and biopsy is suggested. This is probably near the 9 o'clock region based on the tomogram images. Left breast ultrasound: No cystic or solid nodules evident. The ultrasound does not identify the nodular density noted on the mammogram. IMPRESSION: Suspicious nodule medial aspect left breast. Suggest stereotactic biopsy for further evaluation BI-RAD Category: 4 Suspicious Abnormality - Biopsy Considered FOLLOW-UP: BIO Biopsy Recommended (A letter has been sent to the patient regarding results of the study.) Dictated by: Wil Harris MD 04/26/2020 10:58 Wil Harris MD in [place] 04/26/2020 10:59
== END ==
PROVIDERS: PCP Family Medicine; Visit Provider Nurse Practitioner Obstetrics & Gynecology
DX: R92.8 Other abnormal and inconclusive findings on diagnostic imaging of breast (principal)
CPT/HCPCS: 76641; 77061; 77065; G0279

== ENCOUNTER → 2020-04-30 12:35 | Outpatient (CLI) | payer OTHER, SELFPAY ==
--- NOTE | 2020-04-30 12:36 | MM_ITS ---
PROCEDURE: MM STEREOTACTIC LOC LT CLINICAL INDICATION: Suspicious nodule Abnormal breast calcifications. TECHNIQUE: The patient was given 1 mg of Xanax, Lortab 7 point mg, and analgesia and minor sedation. The patient was placed on the stereotactic table and the left breast calcifications in the inner aspect was localized in the most appropriate projection. The breast was prepped in the routine manner, with sterile prep and the overlying skin anesthetized. A 3 to 4 mm skin incision was performed and the 9 gauge sorus vacuum-assisted core biopsy needle was advanced to the region of the calcification. Pre- and post fire images were obtained. After adequate positioning relative to the calcifications was ensured, multiple biopsies were obtained in the region of the calcifications specifically. The core biopsies obtained were sent for specimen mammography. After the calcifications were indeed identified on the specimen mammogram, the procedure was terminated. The patient tolerated the procedure well without complications. A tiny titanium nonferromagnetic MicroMark was positioned through the mammotome needle into the biopsy site. Pathology: Benign breast with non proliferative fibrocystic changes and fragment of fibroadenoma. Microcalcifications present. Negative for carcinoma. IMPRESSION: 1. Successful stereotactic vacuum-assisted core biopsy of the breast calcifications. 2. Successful placement of a titanium metal MicroMark. 3. Pathologic analysis should be forthcoming within 3 working days. 4. No noted complications. SPECIMEN RADIOGRAPH: The mammographically evident calcifications from the prior study are currently evident within the Chloe dish and within the specimens obtained during mammotome procedure. This is considered an adequate specimen and the procedure was terminated. IMPRESSION: Successful removal of described breast calcifications. BREAST MAMMOGRAM: Compared to the prior study, the previously noted calcification have been removed. A small MicroMark clip is visualized in the medial aspect of the left breast.. There is evidence of soft tissue changes in the region of the biopsy was soft tissue gas and edema. 5. Adequate placement of the MicroMark clip postbiopsy. 6. Postbiopsy changes within the breast. 7. Recommend six-month mammographic follow-up per routine protocol. Dictated by: Wil Harris MD 05/07/2020 09:47 Wil Harris MD in [place] 05/07/2020 09:47
== END ==
PROVIDERS: PCP Family Medicine; Visit Provider Nurse Practitioner Obstetrics & Gynecology
DX: R92.8 Other abnormal and inconclusive findings on diagnostic imaging of breast (principal); N63.20 Unspecified lump in the left breast, unspecified quadrant; R92.1 Mammographic calcification found on diagnostic imaging of breast
CPT/HCPCS: 19081; 76098; 77061; 77065; G0279

== ENCOUNTER 2020-05-24 08:00 | Outpatient (RCR) | payer OTHER, SELFPAY ==
--- NOTE | 2020-04-12 14:04 | HMH.PTOPEV ---
PT Outpatient Evaluation Rehab PT Outpatient Evaluation Start: 04/12/20 13:40 Freq: Status: Active Protocol: Document 04/12/20 13:40 [email or web address] (Rec: 04/12/20 14:04 BLUE [id number]) Electronically Signed By Luis Chapa, PT 04/12/20 13:40 Outpatient Therapy Subjective History Subjective History Patient is a 39 year old female presenting to outpatient PT with reports of R shoulder pain starting approximatley 6 months ago. Possible throwing injury. Most recent imaging indicates possible tendinopathy of supraspinatus tendon. No other comorbidities to report. Chief Complaint Pain Symptom Type Sharp Symptoms Relieved By Rest/Positioning,OTC Meds Symptoms Aggravated By Lifting Prior Functional Limitations None Current Functional Limitations Reaching,Lifting,Housework, Sleeping,Recreation Activity Symptom Description Intermittent Level of pain today (0-10) 0 Pain scale - at its best (0-10) 0 Pain scale - at its worst (0-10) 5 Shoulder/Elbow Eval Shoulder Objective Measurements Palpation Tenderness tenderness shoulder exam standard right Shoulder Palpation Findings Tenderness Shoulder Palpation Overall Comment R supraspinatus 3/4 Posture Shoulder Posture Sitting Position (L) Forward,(R) Forward Shoulder Posture Standing Position (L) Forward,(R) Forward Shoulder ROM Bilateral full ROM shoulder exam standard bilateral Shoulder MMT Left Shoulder Strength Reason Not Measured WFL Right Shoulder Abduction Strength Grade 4- Good- Shoulder Flexion Strength Grade 4- Good- Middle Deltoid Strength Strength Grade 3+ Fair+ Shoulder Internal Rotation Strength 4- Good- Grade Shoulder Special Tests Shoulder Drop Arm Test Negative Right Shoulder Cross-Over Impingement Test Negative Right Shoulder Empty Can (Supraspinatus) Test Positive Right Elbow Objective Measurements Outpatient Therapy Assessment Impairments Problems/Impairmments Palpation Tenderness,Impaired Strength,Impaired Driving, Impaired Lifting,Impaired Dressing,Impaired Shower/ Bathing,Impaired Household Care,Impaired Recreational Activities,Impaired Work Activities,Subjective C/O Pain Prognosis Rehab Potential Good Clinical Impression Consistent with Diagnosis Yes Short Term Goals Number of Weeks
--- NOTE | 2020-05-10 10:10 | HMH.RHREAS ---
Rehab Reassessment Rehab OP Re-assessment Start: 05/10/20 09:40 Freq: Status: Active Protocol: Document 05/10/20 10:05 [email or web address] (Rec: 05/10/20 10:09 BLUE [id number]) Electronically Signed By Luis Chapa, PT 05/10/20 10:05 Rehab Re-assessment Subjective Subjective Patient reports 50% improvement since start of care. Objective Objective Notes AROM WNL MMT WNL Neuro WNL Pain: 5/10 at worst; 3/10 today Assessment Progress Assessment Progressing as Expected Assessment Notes Patient has been tolerating Rx well. Rx has consisted ther- ex, dry needling and modalities for pain relief. Persistent symptoms to the R upper trapezius mm. Patient is experiencing an acute exacerbation of symptoms secondary to fall down stairs at home currently. Patient reports peristent functional limitations with overhead lifting activities. Patient goals met STG's Goals Not Met LTG's Revised Goals NA Plan Plan Continue with current POC. Frequency of Therapy 2x/week Duration of therapy 4 weeks Time and Billing Re-Eval Time 15 Re-Eval Billing Units 1 PHYSICIAN CERTIFICATION: I certify the specified therapy services for Reilly Meredith are required, authorized, and reviewed every 30 days.
== END 2020-05-24 08:05 | disposition home or self-care (01) ==
LOC: PT 08:00
PROVIDERS: PCP Family Medicine; Visit Provider Orthopaedic Surgery
DX: M25.511 Pain in right shoulder (principal); M75.51 Bursitis of right shoulder; M75.41 Impingement syndrome of right shoulder; M67.911 Unspecified disorder of synovium and tendon, right shoulder
CPT/HCPCS: 20560; 97010; 97014; 97033; 97035; 97110; 97140; 97163; 97164; G0283

== ENCOUNTER → 2020-05-24 09:03 | Outpatient (CLI) | payer OTHER, SELFPAY ==
--- NOTE | 2020-05-24 09:06 | XR_ITS ---
PROCEDURE: XR SACRUM COCCYX MIN 2V CLINICAL INDICATION: fall and persistent pain COMPARISON: No exams were available for comparison FINDINGS: The sacrum and coccyx appear grossly intact though the coccyx is somewhat poorly seen due to the patient's size. The SI joints and symphysis pubis appear normal. The IUD is noted. IMPRESSION: No acute findings. Dictated by: Dr. Andrew Holder MD 05/24/2020 10:12 Dr. Andrew Holder MD in [place] 05/24/2020 10:12
--- NOTE | 2020-05-24 09:06 | XR_ITS ---
PROCEDURE: XR LUMBAR SPINE 2-3V CLINICAL INDICATION: pain lower lumbar region following fall, r/o fract COMPARISON: CR Lumbar spine from 08/15/2018 FINDINGS: There is normal curvature and alignment. L1 through L5 appear intact. Disc spaces are well maintained throughout. There are mild hypertrophic facet changes at the L5-S1 level. There is an IUD seen projecting over the mid- lower sacrum. The SI joints appear. IMPRESSION: No acute findings. Dictated by: Dr. Andrew Holder MD 05/24/2020 10:11 Dr. Andrew Holder MD in [place] 05/24/2020 10:11
== END ==
PROVIDERS: PCP Family Medicine; Visit Provider Specialist
DX: M54.5 Low back pain (principal)
CPT/HCPCS: 72100; 72220

== ENCOUNTER → 2020-10-18 12:55 | Outpatient (CLI) | payer OTHER, SELFPAY ==
--- NOTE | 2020-10-18 12:55 | MM_ITS ---
PROCEDURE: MM DIG MAMM DX UNILAT LT CAD Digital Breast Tomosynthesis Included CLINICAL INDICATION: abnormal xmg Follow-up stereotactic breast biopsy COMPARISON: MG MM DIG SCREENING MAMM BI W/CAD from 04/19/2020 MG MM DIG MAMM DX UNILAT LT CAD from 04/24/2020 MG MM DIG MAMM DX UNILAT LT CAD from 04/30/2020 MG MM SURGICAL SPECIMEN LT from 04/30/2020 MG MM STEREOTACTIC LOC LT from 04/30/2020 TECHNIQUE: Standard CC and MLO images and 3D Tomosynthesis was obtained. R2 CAD reviewed. FINDINGS: Average fibroglandular tissue. Biopsy clip is present in the lower inner aspect of the left breast. There is an asymmetric density measuring approximately 10 mm which overlies the placed clip on the CC view but is slightly inferior to the clip on the MLO view probably related to post biopsy changes. No residual calcifications apparent. No other significant anomalies evident. IMPRESSION: Focal asymmetric density in the medial aspect of the left breast overlying the biopsy clip on the CC view consistent with post biopsy scarring. Recommend continued six-month follow-up to confirm stability. BI-RAD Category: 3 Probably Benign Finding Short Term Follow-Up FOLLOW-UP: 6M 6 Month Follow-up (A letter has been sent to the patient regarding results of the study.) Dictated by: Wil Harris MD 10/24/2020 09:15 Wil Harris MD in [place] 10/24/2020 09:15
== END ==
PROVIDERS: PCP Family Medicine; Visit Provider Nurse Practitioner Obstetrics & Gynecology
DX: R92.8 Other abnormal and inconclusive findings on diagnostic imaging of breast (principal)
CPT/HCPCS: 77061; 77065; G0279

== ENCOUNTER → 2020-11-04 17:58 | Outpatient (CLI) | payer OTHER, SELFPAY ==
[2020-11-04 18:22] LABS: Coronavirus 19, PCR Not Detected (NotDetected); Influenza A, PCR Not Detected (NotDetected); Influenza B, PCR Not Detected (NotDetected)
== END ==
PROVIDERS: PCP Family Medicine; Visit Provider Nurse Practitioner
DX: Z20.822 Contact with and (suspected) exposure to COVID-19 (principal)
CPT/HCPCS: U0003

== ENCOUNTER → 2021-01-10 09:29 | Outpatient (CLI) | payer OTHER, SELFPAY ==
[2021-01-10 15:17] LABS: Coronavirus 19 IgG Antibody Negative (Negative); Coronavirus 19 IgM Antibody Negative (Negative)
== END ==
PROVIDERS: Visit Provider Specialist
DX: Z20.822 Contact with and (suspected) exposure to COVID-19 (principal); Z01.84 Encounter for antibody response examination
CPT/HCPCS: 86328

== ENCOUNTER → 2021-02-21 09:40 | Outpatient (CLI) | payer OTHER, SELFPAY ==
[2021-02-21 12:13] LABS: Coronavirus 19, PCR Not Detected (NotDetected); Influenza A, PCR Not Detected (NotDetected); Influenza B, PCR Not Detected (NotDetected)
== END ==
PROVIDERS: PCP Family Medicine; Visit Provider Nurse Practitioner
DX: Z20.822 Contact with and (suspected) exposure to COVID-19 (principal)
CPT/HCPCS: C9803; U0003; U0005

== ENCOUNTER → 2021-05-02 13:07 | Outpatient (CLI) | payer OTHER, SELFPAY ==
--- NOTE | 2021-05-02 13:09 | MM_ITS ---
PROCEDURE INFORMATION: Exam: Bilateral Diagnostic Breast Tomosynthesis Exam date and time: 05/02/2021 1:09 PM Age: 40 years old Clinical indication: Follow-up status post benign left breast biopsy with pathology yielding benign breast tissue with fragment of fibroadenoma and nonproliferative fibrocystic changes, microcalcifications present. TECHNIQUE: Imaging protocol: Bilateral Diagnostic tomosynthesis and 2D mammography including computer-aided detection (CAD) when performed. Unilateral or bilateral exam. COMPARISON: 04/19/2020. 04/24/20 FINDINGS: MAMMOGRAPHY: Breast density: The breasts are heterogeneously dense, which may obscure small masses. Mass: No suspicious masses. Architectural distortion: No suspicious distortion in either breast. Biopsy clip noted in the 9 o'clock position of the left breast, middle depth. Minimal post biopsy changes noted on spot compression views in the region of the biopsy clip. Calcifications: No suspicious calcifications. Asymmetric density: None. Skin thickening: None. Axillary adenopathy: None. IMPRESSION: No mammographic evidence of malignancy. Annual screening is recommended unless otherwise clinically indicated. ASSESSMENT: BI-RADS Category 2: Benign
== END ==
PROVIDERS: PCP Family Medicine; Visit Provider Nurse Practitioner Obstetrics & Gynecology
DX: R92.8 Other abnormal and inconclusive findings on diagnostic imaging of breast (principal)
CPT/HCPCS: 77062; 77066; G0279

== ENCOUNTER → 2022-02-13 08:15 | Outpatient (CLI) | payer OTHER, SELFPAY ==
[2022-02-13 08:25] LABS: MANUAL DIFFERENTIAL MANUAL DIFFERENTIAL (MANUAL DIFF); Microscopic, Urine URINE MICROSCOPIC (MICROSCOPIC)
[2022-02-13 08:45] LABS: Appearance,Urine CLEAR (Clear); Bilirubin,Urine Negative (Negative); Blood, Urine Negative (Negative); Color,Urine YELLOW (Yellow); Glucose,Urine (UA) Negative (Negative); Ketones,Urine Negative (Negative); Leukocyte Esterase,Urine Negative (Negative); Nitrate,Urine Negative (Negative); PH,Urine 7.5 (5.0-8.5); Protein,Urine Negative (Negative); Urobilinogen,Urine 0.2 EU/dl (0.2)
[2022-02-13 08:48] LABS: Basophils # 0.1 K/mm3 (0-0.2); Basophils % 0.9 % (0.1-2.0); Eosinophils # 0.2 K/mm3 (0.0-0.4); Eosinophils % 2.2 % (0.1-12.0); Hematocrit 45.5 % (37.0-47.0); Hemoglobin 14.6 g/dL (12.2-16.2); Lymphocytes # 1.5 K/mm3 (0.7-4.5); Lymphocytes % 23.1 % (10-50); Mean Corpuscular Hemoglobin 30.8 pg (27.0-31.2); Mean Corpuscular Volume 96.1 fl (81-99); Mean Platelet Volume 7.8 fl (7.4-10.4); Monocytes # 0.3 K/mm3 (0.1-1.0); Monocytes % 4.6 % (1.7-9.3); Neutrophils # 4.5 K/mm3 (1.8-7.8); Neutrophils % 69.2 % (37.0-80.0); Platelet Count 290 K/mm3 (142-424); Red Blood Count 4.74 M/mm3 (4.20-5.40); Red Cell Distribution Width 12.5 % (11.5-17.5); White Blood Count 6.5 K/mm3 (4.8-10.8)
[2022-02-13 09:01] LABS: Bacteria,Urine 1+ /lpf; WBC,Urine Occasional #/hpf (0-3)
[2022-02-13 09:32] LABS: Alanine Aminotransferase 31 U/L (12-78); Albumin Level 4.3 g/dl (3.5-5.0); Albumin/Globulin Ratio 1.7 (1.1-1.8); Alkaline Phosphatase 94 U/L (38-126); Anion Gap 12.2 mEq/L (5-15); Aspartate Amino Transferase 30 U/L (14-36); Bilirubin,Total 0.5 mg/dl (0.2-1.3); Blood Urea Nitrogen 11 mg/dl (7-17); Calcium 9.5 mg/dl (8.4-10.2); Carbon Dioxide 28 mmol/L (22.0-30.0); Chloride 103 mmol/L (98-107); Chol/HDL Ratio 3.1 (1-3.5); Cholesterol 158 mg/dl (140-200); Estimated Glomerular Filt Rate 80 ml/min (>60); GFR (African American) 97 ML/MIN (>60); Globulin 2.6 g/dL (1.3-3.2); Glucose 91 mg/dl (74-100); HDL Cholesterol 51 mg/dl (40-60); Potassium 4.2 mmoL/L (3.5-5.1); Sodium 139 mmol/L (136-145); Total Protein,Serum 6.9 g/dl (6.3-8.2); Triglycerides 99 mg/dl (30-150); VLDL Cholesterol 20 mg/dL (0-40)
[2022-02-13 09:43] LABS: Direct LDL Cholesterol 80.09 mg/dL (100-129)
[2022-02-13 10:01] LABS: Thyroid Stimulating Hormone 2.68 uIU/mL (0.465-4.68)
[2022-02-13 10:42] LABS: Lymphocytes % 29 % (10-50); Monocytes % 4 % (2-9); Neutrophils % 66 % (42-76); Total Cells Counted 100
[2022-02-13 10:43] LABS: Platelet Estimate Normal; RBC Morphology Normal
== END ==
PROVIDERS: PCP Family Medicine; Visit Provider Family Medicine
DX: Z00.00 Encounter for general adult medical examination without abnormal findings (principal)
CPT/HCPCS: 36415; 80053; 80061; 81001; 84443; 85007; 85014; 85018; 85048; 85049

== ENCOUNTER → 2022-06-12 10:51 | Outpatient (CLI) | payer OTHER, SELFPAY ==
--- NOTE | 2022-06-12 10:52 | MM_ITS ---
PROCEDURE INFORMATION: Exam: MG Bilateral Screening 3D Mammography Exam date and time: 06/12/2022 10:50 AM Age: 41 years old Clinical indication: Screening examination TECHNIQUE: Imaging protocol: Bilateral Screening tomosynthesis and 2D mammography including computer-aided detection (CAD) when performed. COMPARISON: 1. MG MM DIG MAMM BI DX W/CAD 05/02/2021 1:02 PM 2. MG MM DIG MAMM DX UNILAT LT CAD 10/18/2020 1:01 PM FINDINGS: MAMMOGRAPHY: Breast composition: There are scattered areas of fibroglandular density. Mass: Questionable 1.1 cm mass likely within the posterior third of the left upper breast only well seen in the craniocaudal projection Architectural distortion: None. Calcifications: No suspicious calcifications. Asymmetric density: None. Skin thickening: None. Axillary adenopathy: None. IMPRESSION: Patient to be recalled for a spot compression view of the left breast in the craniocaudal projection, a full 90 degree lateral view of the left breast, and left breast ultrasound for further evaluation of a questionable left breast mass. ASSESSMENT: BI-RADS Category 0: Incomplete- Need Additional Imaging Evaluation and/or Prior Mammograms for Comparison
== END ==
PROVIDERS: PCP Family Medicine; Visit Provider Nurse Practitioner Obstetrics & Gynecology
DX: Z12.31 Encounter for screening mammogram for malignant neoplasm of breast (principal)
CPT/HCPCS: 77063; 77067

== ENCOUNTER → 2022-06-29 13:01 | Outpatient (CLI) | payer OTHER, SELFPAY ==
--- NOTE | 2022-06-29 13:01 | MM_ITS ---
PROCEDURE INFORMATION: Exam: US Left Breast, Complete MG Left Diagnostic Breast Tomosynthesis Exam date and time: 06/29/2022 12:53 PM Age: 41 years old Clinical indication: Patient recalled on the basis of a screening mammogram for further evaluation; Left breast; mass TECHNIQUE: Imaging protocol: Complete ultrasound of all four quadrants of the left breast and the retroareolar regions, including ultrasound of the axilla when performed. Left Diagnostic tomosynthesis and 2D mammography including computer-aided detection (CAD) when performed. Unilateral or bilateral exam. COMPARISON: 1. MG MM DIG SCREENING MAMM BI W/CAD 06/12/2022 10:50 AM 2. MG MM DIG MAMM BI DX W/CAD 05/02/2021 1:02 PM FINDINGS: MAMMOGRAPHY: Digital diagnostic spot compression views of the left breast and 90 degree lateral view of the left breast demonstrate a persistent 1.1 cm posterior ovoid mass best seen in the craniocaudal spot compression view. ULTRASOUND: Sonographic images of the left 2 o'clock axis 9 cm from the nipple demonstrates an ovoid mass measuring 0.7 x 0.7 x 0.3 cm in dimension, most likely correlating with the mass on mammography. Finding likely represents a debris-filled cyst. Additional probably benign hypoechoic mass in the left 6 o'clock axis 6 cm from the nipple measures 0.9 x 0.4 x 0.3 cm. By report, this underwent prior biopsy with benign results. IMPRESSION: Probably benign debris-filled cyst in the left 2 o'clock axis corresponding to the mass on mammography. A precautionary six-month follow-up diagnostic left mammogram and targeted left breast ultrasound are recommended to ensure stability over time. ASSESSMENT: BI-RADS Category 3: Probably benign
== END ==
PROVIDERS: PCP Family Medicine; Visit Provider Nurse Practitioner Obstetrics & Gynecology
DX: R92.8 Other abnormal and inconclusive findings on diagnostic imaging of breast (principal)
CPT/HCPCS: 76641; 77061; 77065; G0279

== ENCOUNTER → 2022-10-29 11:10 | Outpatient (CLI) | payer OTHER, SELFPAY ==
[2022-10-29 11:41] LABS: Basophils % 0.6 % (0.1-2.0); Eosinophils # 0.1 K/mm3 (0.0-0.4); Eosinophils % 1.6 % (0.1-12.0); Hemoglobin 15.1 g/dL (12.2-16.2); Lymphocytes # 1.9 K/mm3 (0.7-4.5); Lymphocytes % 27.4 % (10-50); Mean Corpuscular HGB Conc 33.4 g/dL (31.8-35.4); Mean Corpuscular Volume 92.7 fl (81-99); Mean Platelet Volume 8.1 fl (7.4-10.4); Monocytes # 0.4 K/mm3 (0.1-1.0); Neutrophils # 4.4 K/mm3 (1.8-7.8); Neutrophils % 64.4 % (37.0-80.0); Platelet Count 306 K/mm3 (142-424); Red Blood Count 4.86 M/mm3 (4.20-5.40); Red Cell Distribution Width 12.5 % (11.5-17.5); White Blood Count 6.8 K/mm3 (4.8-10.8)
[2022-10-29 12:01] LABS: Alanine Aminotransferase 32 U/L (12-78); Albumin Level 4.3 g/dl (3.5-5.0); Alkaline Phosphatase 84 U/L (38-126); Anion Gap 17.6 mEq/L (5-15); Aspartate Amino Transferase 26 U/L (14-36); Bilirubin,Indirect 0.4 mg/dL (0.0-0.9); Bilirubin,Total 0.4 mg/dl (0.2-1.3); Bilirubin,Unconjugated 0.6 mg/dL (0.0-1.1); Blood Urea Nitrogen 9 mg/dl (7-17); Calcium 9.2 mg/dl (8.4-10.2); Carbon Dioxide 26 mmol/L (22.0-30.0); Chloride 102 mmol/L (98-107); Chol/HDL Ratio 3.5 (1-3.5); Cholesterol 176 mg/dl (140-200); Estimated Glomerular Filt Rate 80 ml/min (>60); GFR (African American) 97 ML/MIN (>60); Glucose 87 mg/dl (74-100); HDL Cholesterol 50 mg/dl (40-60); Potassium 4.6 mmoL/L (3.5-5.1); Sodium 141 mmol/L (136-145); Total Protein,Serum 7.4 g/dl (6.3-8.2); Triglycerides 114 mg/dl (30-150); VLDL Cholesterol 23 mg/dL (0-40)
[2022-10-29 12:11] LABS: Direct LDL Cholesterol 97.69 mg/dL (100-129)
[2022-10-29 12:13] LABS: NT Pro Brain Natriuretic Pep. 22.6 pg/mL (0-125); Troponin I < 0.01 ng/ml (0.00-0.034)
[2022-10-29 12:31] LABS: Thyroid Stimulating Hormone 2.74 uIU/mL (0.465-4.68)
[2022-10-29 13:16] LABS: Free T4 (Free Thyroxine) 1.24 ng/dl (0.78-2.19)
--- NOTE | 2022-10-29 14:20 | CA_ITS ---
APPROVED REPORT EXAM: Comprehensive 2D, Doppler, and color-flow Echocardiogram [employer]: Swathi Lopez RT(R) Ht: 5 ft 6 in Wt: 229lbs BSA: 2.12 BP: 132/90 mmHg Indications: SOB, splenomegaly, nausea, CP 2D Dimensions LVOT 1.91 cm (M/F) 1.5-2.5 LVEF (Pool's) 62.00 % F: 54 - 74 LV Volume 70.70 mL F: 46 - 106 LV Volume Index 33.35 mL/m2 F: 29 - 61 LA Volume 29.80 mL LA Volume Index 14.06 mL/m2 (M/F) 16-34 M-Mode Dimensions RVDd 2.57 cm (0.9-2.6) LA Diam 3.82 cm (1.9-4.0) LVDd 5.39 cm (3.5-5.7) Ao Diam 2.76 cm (2.0-3.7) LVDs 4.06 cm (3.5-5.7) IVSd 1.09 cm (0.6-1.1) PWd 0.97 cm (0.6-1.1) EF (Teich) 48.50% FS 24.70% EDV (Teich) 140.70 mL ESV (Teich) 72.50 mL Left Ventricle The left ventricle is normal size. The left ventricular systolic function is normal. The left ventricular ejection fraction is within the normal range. There is normal left ventricular wall thickness. There is normal LV segmental wall motion. Tissue Doppler is not performed for diastolic evaluation. LVEF is 55% Right Ventricle The right ventricle is normal size. The right ventricular systolic function is normal. There is mild increase in RV wall thickness. Atria The left atrium size is normal. The right atrium size is normal. There is no Doppler evidence of interatrial shunt. Aortic Valve The aortic valve is normal in structure. There is no aortic valvular stenosis. Trace aortic regurgitation. Mitral Valve The mitral valve is normal in structure. No evidence of mitral valve stenosis. Trace mitral regurgitation. Tricuspid Valve The tricuspid valve leaflets are thin and pliable. Trace tricuspid regurgitation. RVSP is normal. Pulmonic Valve The pulmonary valve is normal in structure. Trace pulmonic regurgitation. Great Vessels The aortic root is normal in size. The ascending aorta is normal in size. IVC is normal in size and collapses >50% with inspiration. Pericardium There is no pericardial effusion. An epicardial fat pad is noted. Other Information Study Quality: Technically Difficult Conclusion This is a technically difficult study due to poor accoustic windows. Normal biventricular systolic function. No significant valvular disease. Normal RVSP. Electronically signed by : Corazon Robertson, 11/01/2022 17:59:40
== END ==
PROVIDERS: Visit Provider Nurse Practitioner Family
DX: Z00.00 Encounter for general adult medical examination without abnormal findings (principal); R06.02 Shortness of breath; R07.9 Chest pain, unspecified
CPT/HCPCS: 36415; 80048; 80061; 80076; 83880; 84439; 84443; 84484; 85025; 93306

== ENCOUNTER → 2023-01-01 13:35 | Outpatient (CLI) | payer OTHER, SELFPAY ==
--- NOTE | 2023-01-01 13:35 | US_ITS ---
PROCEDURE INFORMATION: Exam: US Left Breast, Complete MG Left Diagnostic Breast Tomosynthesis Exam date and time: 01/01/2023 2:18 PM Age: 42 years old Clinical indication: Short-term radiographic followup; Left breast; mass TECHNIQUE: Imaging protocol: Complete ultrasound of all four quadrants of the left breast and the retroareolar regions, including ultrasound of the axilla when performed. Left Diagnostic tomosynthesis and 2D mammography including computer-aided detection (CAD) when performed. Unilateral or bilateral exam. COMPARISON: US BREAST LT COMPLETE 06/29/2022 1:43 PM FINDINGS: MAMMOGRAPHY: The breast is heterogeneously dense, which may obscure small masses. There is no stellate mass, architectural distortion or suspicious microcalcifications to suggest malignancy. Stable 1.1 cm mass in the posterior third of the left approximate 12 o'clock axis better seen in the craniocaudal projection. No skin thickening or axillary adenopathy. ULTRASOUND: Sonographic images of the left 2 o'clock axis 9 cm from the nipple demonstrates a stable hypoechoic mass measuring 0.7 x 0.7 x 0.4 cm, likely reflecting a debris-filled cyst. Hypoechoic mass in the left 3 o'clock axis 6 cm from the nipple measures 0.4 x 0.5 x 0.3 cm and likely reflects focal fibrocystic change. 0.7 cm cyst in the 8 o'clock axis 8 cm from the nipple. Stable hypoechoic mass in the left 6 o'clock axis 6 cm from the nipple that, by report, underwent prior biopsy with benign results and measuring 0.8 x 0.4 x 0.4 cm. No axillary adenopathy. IMPRESSION: 1. Stable left 2 o'clock axis mass compared to prior ultrasound dated 06/29/2022. 2. New probably benign left 3 o'clock axis focus of fibrocystic change. A six-month follow-up targeted left breast ultrasound is recommended to ensure stability of these 2 findings unless otherwise clinically indicated. The patient is also due at that time for annual bilateral mammographic screening. ASSESSMENT: BI-RADS Category 3: Probably benign
== END ==
PROVIDERS: PCP Internal Medicine; Visit Provider Nurse Practitioner Obstetrics & Gynecology
DX: R92.8 Other abnormal and inconclusive findings on diagnostic imaging of breast (principal)
CPT/HCPCS: 76641; 77061; 77065; G0279

== ENCOUNTER 2023-04-03 09:49 | Outpatient (CLI) | payer OTHER, SELFPAY ==
--- NOTE | 2023-04-03 10:04 | XR_ITS ---
PROCEDURE INFORMATION: Exam: XR Right Hip Exam date and time: 04/03/2023 10:06 AM Age: 42 years old Clinical indication: Hip pain; Right hip TECHNIQUE: Imaging protocol: Radiologic exam of the right hip. Views: 2 or 3 views hip with pelvis when performed. COMPARISON: [id number] CT abdomen pelvis w con 07/11/2017 3:12 AM FINDINGS: Tubes, catheters and devices: There is an intrauterine contraceptive device projected in the pelvic region. Bones/joints: Unremarkable. No acute fracture. Soft tissues: Unremarkable. IMPRESSION: No acute findings.
== END 2023-04-03 23:59 ==
PROVIDERS: PCP Internal Medicine; Visit Provider Nurse Practitioner Family
DX: M25.551 Pain in right hip (principal)
CPT/HCPCS: 73502

== ENCOUNTER 2023-05-27 07:09 | Outpatient (CLI) | payer OTHER, SELFPAY ==
[2023-05-27 08:20] LABS: Chol/HDL Ratio 4.6 (1-3.5); Cholesterol 189 mg/dl (140-200); HDL Cholesterol 41 mg/dl (40-60); Triglycerides 114 mg/dl (30-150); VLDL Cholesterol 23 mg/dL (0-40)
[2023-05-27 08:31] LABS: Direct LDL Cholesterol 105.37 mg/dL (100-129)
[2023-05-27 09:18] LABS: 25-OH Vitamin D, Total 16.1 ng/mL (30-100)
== END 2023-05-27 23:59 ==
LOC: LAB 07:10
PROVIDERS: PCP Internal Medicine; Visit Provider Internal Medicine
DX: E66.9 Obesity, unspecified (principal); Z68.35 Body mass index [BMI] 35.0-35.9, adult; Z79.899 Other long term (current) drug therapy
CPT/HCPCS: 36415; 80061; 82306

== ENCOUNTER 2025-01-19 09:59 | Outpatient (CLI) | payer BC, SELFPAY ==
--- OUTSIDE RECORDS SUMMARY | 2024-12-19 07:30 | XMS_ITS | Encounter Summary ---
Author Organization [employer] ([place], [place], [place], [place], [place]) Address [address] [place] [address] Care Team Providers Care Cellar Packer Name Role Phone Zan Murray MD Primary Care Provider [phone] Reason for Visit * Reason Comments Medication Management A1c today is 5.2 Encounter Details Date Type Department Care Team (Late st Contact Info) Description 12/19/2024 8:30 AM EDT Office Visit [facility] Bariatric Services [address] [place] [phone] Maggy Vaca, MANAGER FRENCH [address] [place] [address] Metabolic syndrome (Primary Dx); BMI 38.0-38.9,adult; Screening for thyroid disorder; Screening for lipid disorders Social History Tobacco Use Types Packs/Day Years Used Date Smoking Tobacco: Never Smokeless Tobacco: Never Tobacco Cessation:Counseling Given: Not Answered Alcohol Use Standard Drinks/Week Comments Never 0 (1 standard drink = 0.6 oz pur e alcohol) Comments Unknown Sex and Gender Information Value Date Recorded Sex Assigned at Not on file Legal Sex Female 7:15 PM CDT Gender Identity Not on file Sexual Orientation Not on file documented as of this encounter Last Filed Vital Signs Vital Sign Reading Time Taken Comments Blood Pressure 118/74 12/19/2024 8:50 AM EDT Pulse 68 12/19/2024 8:50 AM EDT Temperature - - Respiratory Rate - - Oxygen Saturation - - Inhaled Oxygen Concentration - - Weight 107.5 kg (237 lb) 12/19/2024 8:50 AM EDT Height 166.4 cm (5' 5.5 ) 12/19/2024 8:50 AM EDT Body Mass Index 38.84 12/19/2024 8:50 AM EDT documented in this encounter Progress Notes * Maggy Vaca, MANAGER FRENCH - 12/19/2024 8:30 AM EDT Subjective: Chief Complaint Patient presents with Medication Management A1c today is 5.2 Reilly Meredith is a 44 y.o. female who presents to the office today to establish care for obesity management. Comorbidities: Denies HTN, heart disease, DM, FLP, stroke, sleep apnea. Referred by: Self Feels like eating patterns are out of control: Y Reports frequent snacking: Y Reports emotional eating: Y Dietary Habits: Regular Exercise Habits: No structured exercise currently Short Term Goals: 30# wt loss Fci Goals: 80 # wt loss Past efforts: WW, Fitness Pal tracking, Ozempic, victoza Barriers: Time, finances, emotions Labs: Due for labs Denies personal and family history of MTC or MEN 2 syndrome. Denies history of thyroid nodules. Patient reports that she took semaglutide in the past and had severe intolerance. Admits N/V/C, abdominal pain. She also told me she was unable to get any results for multiple months. She has monitored blood glucose levels in the past with CGM and felt it was beneficial for weight loss goals. Review of Systems All other systems reviewed and are negative. No past medical history on file. Past Surgical History: Procedure Laterality Date CHOLECYSTECTOMY Social History: reports that she has never smoked. She has never used smokeless tobacco. She reports that she does not drink alcohol and does not use drugs. Family History Problem Relation Name Age of Onset Breast cancer Paternal Aunt No Known Allergies Current Outpatient Medications: levonorgestrel 8 year (MIRENA) 21 mcg/24hr (up to 8 yrs) 52 mg IUD, 1 Intra Uterine Device by intrauterine route once., Disp: , Rfl: Objective: BP 118/74 Pulse 68 Ht 1.664 m (5' 5.5 ) Wt 107.5 kg (237 lb) BMI 38.84 kg/m?? Physical Exam Vitals and nursing note reviewed. Constitutional: Appearance: Normal appearance. She is obese. HENT: Head: Normocephalic and atraumatic. Right Ear: External ear normal. Left Ear: External ear normal. Nose: Nose normal. Eyes: Pupils: Pupils are equal, round, and reactive to light. Pulmonary: Effort: Pulmonary effort is normal. Abdominal: Palpations: Abdomen is soft. Musculoskeletal: General: Normal range of motion. Cervical back: Normal range of motion and neck supple. Skin: General: Skin is warm and dry. Neurological: General: No focal deficit present. Mental Status: She is alert and oriented to person, place, and time. Psychiatric: Mood and Affect: Mood normal. Behavior: Behavior normal. Thought Content: Thought content normal. Judgment: Judgment normal. Assessment: 1. Metabolic syndrome 2. BMI 38.0-38.9,adult 3. Screening for thyroid disorder 4. Screening for lipid disorders Results for orders placed or performed in visit on 12/19/24 (from the past 24 hours) POCT Glycated Hemoglobin, Total (A1C) Status: None Collection Time: 12/19/24 9:02 AM Result Value Ref Range Hemoglobin A1C 5.2 % Plan: Diagnoses and all orders for this visit: Metabolic syndrome - POCT Glycated Hemoglobin, Total (A1C) - tirzepatide, weight loss, (Zepbound) 2.5 mg/0.5 mL pnij; Inject 0.5 mLs (2.5 mg total) under the skin every 7 days. - Comprehensive metabolic panel; Future - TSH; Future - Vitamin D, 25-Hydroxy; Future - CBC (Hemogram only); Future - Lipid panel; Future - blood-glucose sensor (DEXCOM G7) device; Replace Dexcom G7 device every 10 days.. BMI 38.0-38.9,adult - tirzepatide, weight loss, (Zepbound) 2.5 mg/0.5 mL pnij; Inject 0.5 mLs (2.5 mg total) under the skin every 7 days. Screening for thyroid disorder - tirzepatide, weight loss, (Zepbound) 2.5 mg/0.5 mL pnij; Inject 0.5 mLs (2.5 mg total) under the skin every 7 days. - Comprehensive metabolic panel; Future - TSH; Future - Vitamin D, 25-Hydroxy; Future - CBC (Hemogram only); Future - Lipid panel; Future Screening for lipid disorders - tirzepatide, weight loss, (Zepbound) 2.5 mg/0.5 mL pnij; Inject 0.5 mLs (2.5 mg total) under the skin every 7 days. - Comprehensive metabolic panel; Future - TSH; Future - Vitamin D, 25-Hydroxy; Future - CBC (Hemogram only); Future - Lipid panel; Future Plan: High BMI-Pharmacological intervention Will check labs as above, recommend zepbound as above given intolerance to wegovy in the past. Monitor BG as above, follow up in 1 month, sooner if needed. Maggy Vaca APRN Electronically signed by Maggy Vaca APRN - 12/19/2024 - 9:18 AM EDT documented in this encounter Miscellaneous Notes * Addendum Note - Maggy Vaca APRN - 12/19/2024 8:30 AM EDTAddended by: MAGGY VACA on: 12/19/2024 11:56 AM Modules accepted: Orders documented in this encounter Plan of Treatment Upcoming Encounters Date Type Department Care Team (Late st Contact Info) Description 05/10/2025 4:00 PM EDT Appointment [address] [address] Scheduled Orders Name Type Priority Associated Diagnoses Orde r Schedule Comprehensive metabolic panel Lab Routine Metabolic syndrome Screening for thyroid disorder Screening for lipid disorders Expected: 12/19/2024, Expires: 12/19/2025 TSH Lab Routine Metabolic syndrome Screening for thyroid disorder Screening for lipid disorders Expected: 12/19/2024, Expires: 12/19/2025 Vitamin D, 25-Hydroxy Lab Routine Metabolic syndrome Screening for thyroid disorder Screening for lipid disorders Expected: 12/19/2024, Expires: 12/19/2025 CBC (Hemogram only) Lab Routine Metabolic syndrome Screening for thyroid disorder Screening for lipid disorders Expected: 12/19/2024, Expires: 12/19/2025 Lipid panel Lab Routine Metabolic syndrome Screening for thyroid disorder Screening for lipid disorders Expected: 12/19/2024, Expires: 12/19/2025 documented as of this encounter Procedures Procedure Name Priority Date/Time Associated Diagnosis Comments POCT GLYCATED HEMOGLOBIN, TOTAL Routine 12/19/2024 9:02 AM EDT Metabolic syndrome documented in this encounter Results * POCT Glycated Hemoglobin, Total (A1C) (12/19/2024 9:02 AM EDT) Hemoglobin A1C 5.2 % 12/19/2024 9:02 AM EDT Maggy Vaca MANAGER FRENCH POINT OF CARE TEST ORDERAB LES Final Result documented in this encounter Visit Diagnoses Diagnosis Metabolic syndrome- Primary Dysmetabolic Syndrome X BMI 38.0-38.9,adult Screening for thyroid disorder Screening for lipid disorders documented in this encounter Care Teams Cellar Packer Relationship Specialty Start Date End Date Zan Murray MD [address] [place] [address] [place] [id number] PCP - General Obstetrics and Gynecology 05/04/24 documented as of this encounter
--- OUTSIDE RECORDS SUMMARY | 2025-01-19 10:01 | XMS_ITS | Referral Summary ---
Author Organization [employer] ([place], [place], [place], [place], [place]) Address [address] [place] [address] Care Team Providers Care Hairpiece Stylist Name Role Phone Zan Murray MD Primary Care Provider [phone] Encounters Date Type Department Care Team Description 12/19/2024 8:30 AM EDT Office Visit [facility] Bariatric Services [address] [place] [phone] Maggy Marie APRN Metabolic syndrome (Primary Dx); BMI 38.0-38.9,adult; Screening for thyroid disorder; Screening for lipid disorders from Last 3 Months Allergies No known active allergies Medications levonorgestre l 8 year (MIRENA) 21 mcg/24hr (up to 8 yrs) 52 mg IUD 1 Intra Uterine Device by intrauterine route once. Active tirzepatide (Mounjaro) 2.5 mg/0.5 mL pnijIndicatio ns:BMI 38.0-38.9,alfonso lt Inject 2.5 mg under the skin every 7 days. 6 mL 12/30/19 25 Active tirzepatide, weight loss, (Zepbound) 2.5 mg/0.5 mL pnijIndicatio ns:Metabolic syndrome,BMI 38.0-38.9,alfonso lt,Screening for thyroid disorder,Scre ening for lipid disorders Inject 0.5 mLs (2.5 mg total) under the skin every 7 days. 2 mL 12/20/19 25 025 Discontinued tirzepatide (Mounjaro) 2.5 mg/0.5 mL pnijIndicatio ns:BMI 38.0-38.9,alfonso lt Inject 2.5 mg under the skin every 7 days. 2 mL 12/21/19 25 025 Discontinued tirzepatide (Mounjaro) 2.5 mg/0.5 mL pnijIndicatio ns:BMI 38.0-38.9,alfonso lt Inject 2.5 mg under the skin every 7 days. 2 mL 12/30/19 25 025 Discontinued(R eorder) tirzepatide (Mounjaro) 2.5 mg/0.5 mL pnijIndicatio ns:BMI 38.0-38.9,alfonso lt Inject 2.5 mg under the skin every 7 days. 6 mL 12/30/19 25 025 Discontinued(R eorder) Active Problems No known active problems Social History Tobacco Use Types Packs/Day Years [...] on file Sexual Orientation Not on file Last Filed Vital Signs Vital Sign Reading [...] Mass Index 38.84 12/19/2024 8:50 AM EDT Plan of Treatment Upcoming Encounters Date Type Department Care Team (Late st Contact Info) Description 05/10/2025 4:00 PM EDT Appointment [address] [address] Procedures Procedure Name Priority Date/Time Associated Diagnosis Comments POCT GLYCATED HEMOGLOBIN, TOTAL Routine 12/19/2024 9:02 AM EDT Metabolic syndrome MM DIGITAL MAMMO SCREEN WITH LAUREANO BILATERAL Routine 05/04/2024 4:20 PM EST Visit for screening mammogram from Last 3 Months or Most Recently Relevant to Health Maintenance Results * POCT Glycated Hemoglobin, Total (A1C) (12/19/2024 9:02 AM EDT) Hemoglobin A1C 5.2 % 12/19/2024 9:02 AM EDT Maggy Marie APRN POINT OF CARE TEST ORDERAB LES Final Result * MM digital mammo screen with laureano bilateral (05/04/2024 4:20 PM EST) Anatomical Region Laterality Modality Breast Bilateral Mammography 05/14/2024 2:08 PM EDT Impressions 05/14/2024 2:13 PM EDT No mammographic evidence of malignancy. BI-RADS CATEGORY: 2 , BENIGN FINDING(S). RECOMMENDED FOLLOW-UP: Routine annual screening mammography. A letter including results and recommendations was sent to the patient. Density notification was provided as well. Patient information entered into a reminder system with a target due date for the next mammogram. At our facility, a [place] marker is positioned over a visible skin lesion and a linear marker is used to indicate a scar. A triangular marker is placed on a self reported palpable finding. Mammography does not detect approximately 10-15% of breast cancers. An annual clinical breast exam by the patient's breast care physician and regular monthly self breast exams by the patient are integral parts of breast cancer screening. A normal mammogram does not completely exclude the presence of breast cancer, especially if there is an abnormal finding on physical exam. When clinically indicated, a biopsy should not be deferred because of a normal mammogram report. : 1980 Images reviewed, interpreted, and dictated by Claudia Moss MD Narrative 05/14/2024 2:13 PM EDT BILATERAL SCREENING DIGITAL MAMMOGRAPHY CLINICAL INDICATION: Routine screening TECHNIQUE: Bilateral CC and MLO views were obtained with 2-D and 3D digital acquisitions. The study was read with the assistance of CAD. COMPARISON: Previous studies back to June 12, 2022. FINDINGS: No suspicious mass, calcifications or architectural distortion is seen. There are scattered areas of fibroglandular density bilaterally. No change identified. us Zan Murray MD IMG MAMMOGRAPHY ORDERABLES Fin al Result from Last 3 Months or Most Recently Relevant to Health Maintenance Insurance [place] [id number] BLUE CROSS/BLUE SHIELD Care Teams Hairpiece Stylist Relationship Specialty Start Date End Date Zan Murray MD [address] [place] [address] [place] [id number] PCP - General Obstetrics and Gynecology 05/04/24
--- OUTSIDE RECORDS SUMMARY | 2025-01-19 10:01 | XMS_ITS | Clinical Summary ---
Author Organization [employer] ([place], [place], [place], [place], [place]) Address [address] [place] [address] Care Team Providers Care Virtual Office Assistant Name Role Phone Zan Murray MD Primary Care Provider [phone] Allergies No known active allergies Medications levonorgestre [...] eorder) Active Problems No known active problems Encounters Date Type Department Care Team Description 12/19/2024 8:30 AM EDT Office Visit [facility] Bariatric Services [address] [place] [address] Maggy Marie APRN Metabolic syndrome (Primary Dx); BMI 38.0-38.9,adult; Screening for thyroid disorder; Screening for lipid disorders from Last 3 Months Family History Medical History Relation Name Comments Breast cancer Paternal Aunt Relation Name Status Comments Paternal Aunt Social History Tobacco Use Types Packs/Day Years [...] Info) Description 05/10/2025 4:00 PM EDT Appointment [facility] Breast Care [address] [place] [address] Health Maintenance Due Date Last Done Comments Depression Screening (12+) 1994 HIV Screening 1997 Hepatitis C Screening 2000 Lipid Panel 2002 Pap Smear 11/02/2003 DTAP/TDAP/TD VACCINES (3 - T d or Tdap) 07/25/2024 07/25/2014, 06/21/2014 COVID-19 VACCINE ( - 2024-2 6 season) 2024 03/03/2021, 01/31/2021 Influenza Vaccine (#1) 2024 Tobacco Cessation Counseling and Screening (12+) 12/19/2025 12/19/2024 Breast Cancer Screening 05/04/2026 05/04/2024 Pneumococcal Vaccine: 0-49 Years Aged Out No longer eligible b ased on patient's age to complete this topic Procedures Procedure Name Priority Date/Time Associated Diagnosis [...] the next mammogram. At our facility, a [place] marker is positioned over a visible skin [...] Relevant to Health Maintenance Insurance [place] [id number] BLUE CROSS/BLUE SHIELD Care Teams Virtual Office Assistant Relationship Specialty Start Date End Date Zan Murray MD [address] [place] [address] [place] [id number] PCP - General Obstetrics and Gynecology 05/04/24
--- OUTSIDE RECORDS SUMMARY | 2025-01-19 10:01 | XMS_ITS | Clinical Summary ---
Author Organization Healthcare Address [facility] [place] [address] Care Team Providers Care Lieutenant Shift Supervisor Name Role Phone Unavailable Primary Care Provider Unavailabl e Allergies No known active allergies Medications * This document contains information received from the source organization and may not represent a complete record from that organization. levonorgestrel (Mirena, 52 MG,) 20 MCG/24HR IUD 0 Active liraglutide (Victoza) 18 MG/3ML inj. pen 0.6 mg injection subQ daily, increase by 0.6 mg weekly to max 3 mg daily 12 mL 3 2 Active Active Problems Problem Noted Date Diagnosed Date Obesity (BMI 30.0-34.9) 06/10/2017 Immunizations Immunization Administration Dates Next Due Hep B, adult 04/26/2001,06/16/1999,04/01/1999 MMR 05/19/2001,10/11/1987 PPD Skin Test (TB Skin Test) 11/28/2010, 03/26/2008,01/11/2007,01/12/2006,,07/31/2003,08/08/2002,05/17/2001,2001 Tdap 06/21/2014 Social History Tobacco Use Types Packs/Day Years Used Date Smoking Tobacco: Never Smokeless Tobacco: Never PHQ-2 Answer Date Recorded Patient Health Questionnaire-2 Score 0 03/14/2021 Comments Unknown Sex and Gender Information Value Date Recorded Sex Assigned at Not on file Legal Sex Female 7:46 PM EDT Gender Identity Not on file Sexual Orientation Not on file Last Filed Vital Signs Vital Sign Reading Time Taken Comments Blood Pressure 110/72 03/14/2021 9:20 AM EST Pulse 104 03/14/2021 9:20 AM EST Temperature - - Respiratory Rate 14 10/21/2018 10:32 AM EDT Oxygen Saturation 98% 03/14/2021 9:20 AM EST Inhaled Oxygen Concentration - - Weight 102 kg (224 lb 13.9 oz) 03/14/2021 9:20 A M EST Height 167.6 cm (5' 6 ) 03/14/2021 9:20 AM EST Body Mass Index 36.29 03/14/2021 9:20 AM EST Plan of Treatment Health Maintenance Due Date Last Done Comments [facility]-Depression Screening 1980 [facility]-/Child/Adol SDOH Screenings 1982 [facility]- SDOH Screenings 2000 [facility]-Adult SDOH Screenings 2000 [facility]-Varicella Vaccines (1 of 2 - 13+ 2-dose series) 06/16/2001 HPV Vaccines (1 - 3-dose SCDM series) 2009 [facility]-Pap Smear 11/22/2009 11/22/2006, 11/06/2005 [facility]-Cervical Cancer Screening 2012 [facility]-HPV/Cotest 2012 11/22/2006, 11/06/2005 [facility]-DTaP,Tdap,and Td Vaccines (3 - Td or Tdap) 07/25/2024 07/25/2014, 06/21/2014 [id number] Vaccine (3 - 2024- season) 2024 03/03/2021, 01/31/2021 [facility]-Influenza Vaccine (#1) 10/30/202412/20, 11/27/2014, 11/24/2012, Additional history exists [facility]-Zoster Vaccines (1 of 2) 2032 [facility]-Hepatitis B Vaccines Completed 002, 06/16/1999, 04/01/1999 [facility]-HIB Vaccines Aged Out No longer e ligible based on patient's age to complete this topic [facility]-Hepatitis A Vaccines Aged Out No longer eligible based on patient's age to complete this topic [facility]-IPV Vaccines Aged Out No longer e ligible based on patient's age to complete this topic [facility]-Pneumococcal Vaccine: Pediatrics (0 to 5 Years) and At-Risk Patients (6 to 49 Years) Aged Out No longer eligible based on patient's age to complete this topic [facility]-Rotavirus Vaccines Aged Out No lo nger eligible based on patient's age to complete this topic Procedures Procedure Name Priority Date/Time Associated Diagnosis Comments CYTO DATA CONVERSION Routine 11/22/2006 12:00 AM EDT from Last 3 Months or Most Recently Relevant to Health Maintenance Results * Cytology (11/22/2006 12:00 AM EDT) 11/22/2006 11/23/2006 9:2 3 AM EDT Narrative SUNQUEST - 11/25/2006 12:04 PM EDT [facility] MR #: [id number] [facility] [address] [place], [place] [address] 1980 (Age: 26) FW Collect Date: 11/22/2006 00:00 Receipt Date: 11/23/2006 09:23 Page 1 DEPARTMENT OF PATHOLOGY AND LABORATORY MEDICINE CYTOPATHOLOGY REPORT Email: [email or web address] [phone] ATTENDING MD/Practitioner: Tom Mejias MD Service: [facility] Location: [facility] Reported: 11/25/2006 12:04 Collected: 11/22/2006 00:00 INTERPRETATION A. THIN PREP (CERVICAL/VAGINAL): NEGATIVE FOR INTRAEPITHELIAL LESION OR MALIGNANCY. SATISFACTORY FOR EVALUATION; ENDOCERVICAL/ TRANSFORMATION ZONE COMPONENT PRESENT. Slide scanned and imaged by [employer] ThinPrep Imaging System with manual review of all selected brooks. Electronically Signed Out By HERNÁN Gilmore(ASCP) HERNÁN Gilmore(ASCP) Cervical cytology is a screening test primarily for squamous cancers and precursors and has associated false negative and positive results. New technologies such as liquid based sampling may decrease but will not eliminate all false negative results. Regular screening and follow-up of unexplained clinical signs and symptoms are recommended to minimize false negative results. Please see the ASCCP website (www.asccp.org) for followup recommendations. If HPV testing was requested, correlation with the results is suggested (please call Microbiology at [phone] for results). CLINICAL INFORMATION: Menstrual History: Cyclic Date of Last Menstrual Period: 11/13/06 Other Clinical Conditions: If ASCUS and > 24 years of age, HPV/DNA testing requested. SPECIMEN DESCRIPTION: A: THIN PREP (CERVICAL/VAGINAL) THIN PREP PROCESS CELLULAR ENHANCEMENT ICD: V76.2 CERVIX, SPECIAL SCREENING FOR MALIGNANT NEOPLASM F: A; RT IMAGE [id number] SNOMED CODES: A; [id number] In cases where a pathologist has signed out the report, the service has been rendered in part by a resident. The signing pathologist has performed and is responsible for the reported pathologic evaluation. us Historical Provider LAB PATHOLOGY ORDERABLES Fin al Result SUNQUEST from Last 3 Months or Most Recently Relevant to Health [place] [address] [place] [address] [facility]
[2025-01-19 10:33] LABS: Hematocrit 43.3 % (37.0-47.0); Hemoglobin 14.7 g/dL (12.2-16.2); Immature Granulocytes % 0.2 %; Mean Corpuscular HGB Conc 33.9 g/dL (31.8-35.4); Mean Corpuscular Hemoglobin 30.8 pg (27.0-31.2); Mean Corpuscular Volume 90.8 fl (81-99); Nucleated Red Blood Cells % 0 %; Platelet Count 278 K/mm3 (142-424); Red Blood Count 4.77 M/mm3 (4.20-5.40); Red Cell Distribution Width-SD 38.5 fL; White Blood Count 6.0 K/mm3 (4.8-10.8)
[2025-01-19 11:09] LABS: Alanine Aminotransferase 32 U/L (12-78); Albumin Level 4.5 g/dl (3.5-5.0); Albumin/Globulin Ratio 1.7 (1.1-1.8); Alkaline Phosphatase 89 U/L (38-126); Anion Gap 11.3 mEq/L (5-15); Aspartate Amino Transferase 28 U/L (14-36); Bilirubin,Total 0.5 mg/dl (0.2-1.3); Blood Urea Nitrogen 10 mg/dl (7-17); Calcium 9.5 mg/dl (8.4-10.2); Carbon Dioxide 25 mmol/L (22.0-30.0); Chloride 103 mmol/L (98-107); Cholesterol 151 mg/dl (140-200); Creatinine,Serum 0.80 mg/dl (0.52-1.04); Estimated Glomerular Filt Rate 79 ml/min (>60); GFR (African American) 95 ML/MIN (>60); Globulin 2.7 g/dL (1.3-3.2); Glucose 93 mg/dl (74-100); HDL Cholesterol 48 mg/dl (40-60); Potassium 4.3 mmoL/L (3.5-5.1); Sodium 135 mmol/L (136-145); Total Protein,Serum 7.2 g/dl (6.3-8.2); Triglycerides 69 mg/dl (30-150)
[2025-01-19 11:25] LABS: Free T4 (Free Thyroxine) 1.33 ng/dl (0.78-2.19)
[2025-01-19 11:27] LABS: 25-OH Vitamin D, Total 54.2 ng/mL (30-100)
[2025-01-19 11:40] LABS: Thyroid Stimulating Hormone 1.89 uIU/mL (0.465-4.68)
== END 2025-01-19 23:59 | disposition home or self-care (01) ==
LOC: LAB 10:00
PROVIDERS: Nurse Practitioner Family; PCP Internal Medicine; Visit Provider Internal Medicine
DX: Z00.00 Encounter for general adult medical examination without abnormal findings (principal); E88.810 Metabolic syndrome; Z13.29 Encounter for screening for other suspected endocrine disorder; Z13.220 Encounter for screening for lipoid disorders
CPT/HCPCS: 36415; 80053; 80061; 82306; 84439; 84443; 85025